=== PATIENT | female | born 1965 | race Caucasian/White ===

== ENCOUNTER → 2018-06-30 | Outpatient (CLI) | payer OTHER ==
[~2018-06-30] MED LIST: BREO ELLIPTA INH; NEXIUM20 MG PO; ZEGERID 20 MG1 EACH PO; flonase
--- NOTE | 2018-06-30 14:22 | Diagnostic Imaging Report ---
EXAMINATION: PA and lateral views of the chest. COMPARISON: None CLINICAL HISTORY: Joint pain DISCUSSION: The lungs are well-inflated. No focal consolidation, pleural effusion, or pneumothorax. Cardiomediastinal contour and pulmonary vasculature are within normal limits. No acute osseous abnormality. Surgical anchor projects over the left humeral head. IMPRESSION: No acute cardiopulmonary abnormalities. Signed by: Dr. Ismael Quiñonez M.D. on 06/30/2018 2:19 PM
--- NOTE | 2018-06-30 14:25 | Diagnostic Imaging Report ---
Exam: Bilateral feet History: Joint pain Comparison: None. Findings: Left: No acute, displaced fracture or dislocation. Appropriate alignment between the medial cuneiform and second metatarsal base in keeping with an intact Lisfranc ligament. Minimal degenerative calcaneal spur. Soft tissues unremarkable. Right: No acute, displaced fracture or dislocation. Mild joint space narrowing and marginal osteophytosis of the first metatarsophalangeal joint. Remaining joint spaces are well-maintained. Appropriate alignment between the medial cuneiform and second metatarsal base in keeping with an intact Lisfranc ligament. Soft tissues unremarkable. Minimal degenerative plantar calcaneal spur. Impression: No acute osseous abnormality. Mild right first metatarsophalangeal degenerative joint disease. Bilateral degenerative calcaneal spur. Signed by: Dr. Ismael Quiñonez M.D. on 06/30/2018 2:22 PM
--- NOTE | 2018-06-30 14:28 | Diagnostic Imaging Report ---
Exam: Bilateral hands History: Joint pain Comparison: None. Findings: Left: No acute, displaced fracture or dislocation. Joint spaces are well-maintained without erosive changes. Soft tissues are unremarkable. Right: No acute, displaced fracture or dislocation. Postsurgical changes of the distal aspect of the third proximal phalanx. Flexion deformity of the second proximal interphalangeal joint with associated joint space narrowing and marginal osteophytosis Joint spaces are otherwise well-maintained. Soft tissues are unremarkable. Impression: No acute osseous abnormalities. Postsurgical changes of the right fourth proximal phalanx/proximal interphalangeal joint. Flexion deformity of the second proximal interphalangeal joint with associated joint space narrowing, which may be posttraumatic in nature. Signed by: Dr. Ismael Quiñonez M.D. on 06/30/2018 2:25 PM
--- NOTE | 2018-06-30 14:32 | Diagnostic Imaging Report ---
Exam: Sacrum and SI joints History: Joint pain Comparison: None. Findings: No acute, displaced fracture or dislocation. The sacroiliac joints are well-maintained. The sacral foramina are intact superiorly. Inferiorly, the sacral body is obscured by rectal gas and stool. Impression: No acute osseous abnormalities. Signed by: Dr. Ismael Quiñonez M.D. on 06/30/2018 2:29 PM
== END ==
LOC: RAD 13:10
PROVIDERS: ATTEND Student in an Organized Health Care Education/Training Program
DX: M25.542 Pain in joints of left hand (principal); M25.541 Pain in joints of right hand; M25.572 Pain in left ankle and joints of left foot; M25.571 Pain in right ankle and joints of right foot; R07.89 Other chest pain; M53.3 Sacrococcygeal disorders, not elsewhere classified
CPT/HCPCS: 71046; 72200

== ENCOUNTER 2021-05-25 15:44 | Emergency (ER) | payer OTHER ==
[~2021-05-25] VITALS: Ht 165.1 cm; Wt 86.2 kg
[2021-05-25] MEDS ORDERED: KETOROLAC TROMETHAMINE 30 MG/ML VIAL IM STA (15:55)
[2021-05-25] MEDS ORDERED: NAPROXEN250 MG PO (16:42)
[2021-05-25] MEDS ORDERED: LIDOPATCH1 EACH TOP (16:42)
[2021-05-25] MEDS ORDERED: LIDOCAINE 4% PATCH TP SCH (16:45)
== END 2021-05-25 17:12 | disposition home or self-care (01) ==
LOC: ER 15:48
DX: R07.81 Pleurodynia (principal); X50.0XXA Overexertion from strenuous movement or load, initial encounter
CPT/HCPCS: 71101; 99283; J1885

== ENCOUNTER → 2025-04-21 | Day surgery (SDC) | payer OTHER ==
[~2025-04-21] MED LIST changes: +APPLE CIDER VI300 MG PO; +ELIQUIS5 MG PO; +GABAPENTIN300 MG PO; +HYOSCYAMINE SULFATE 0.5 MG/ML INJ ONE; +LEVOCETIRIZINE D5 MG PO; +LIDOPATCH1 EACH TOP; +NAPROXEN250 MG PO; +OMEPRAZOLE40 MG PO; +PROBIOTIC & AC1 EACH PO; +PROPOFOL IV EMULSION 10 MG/ML 20 ML VIAL ONE; +SERTRALINE HCL50 MG PO; +WOMEN'S 50 PLU1 EACH PO
[2025-04-21] MEDS: LACTATED RINGER'S 1,000 ML ONE (07:32)
[2025-04-21 09:01] VITALS: TEMP 98.4
[2025-04-21 09:25] VITALS: BP 110/72; PULSE 71; RESP 18; O2SAT 99
[2025-04-21 17:07] LABS: CDIFF AG QUIK CHEK NEGATIVE (NEGATIVE); CDIFF TOX QUIK CHEK NEGATIVE (NEGATIVE)
== END | disposition home or self-care (01) ==
LOC: OR 07:01
PROVIDERS: ATTEND Internal Medicine Gastroenterology
DX: Z09 Encounter for follow-up examination after completed treatment for conditions other than malignant neoplasm (principal); K63.5 Polyp of colon; K57.30 Diverticulosis of large intestine without perforation or abscess without bleeding; K63.89 Other specified diseases of intestine; K62.89 Other specified diseases of anus and rectum; K64.8 Other hemorrhoids; I10 Essential (primary) hypertension; J45.909 Unspecified asthma, uncomplicated; I48.91 Unspecified atrial fibrillation; Z79.01 Long term (current) use of anticoagulants; Z01.810 Encounter for preprocedural cardiovascular examination
CPT/HCPCS: 45380; 45385; 83630; 83993; 87045; 87177; 87324; 87328; 87449; 93005; J1980; J2704; J7121; 45378